=== PATIENT | female | born 2000 | race American Indian/Alaskan Native ===

== ENCOUNTER 2018-11-25 14:39 | Emergency (ER) | payer MEDICAID ==
--- NOTE | 2018-11-25 15:02 | Event Note ---
ED Screening Note ED Screening Note: pt presents with pelvic pain x 1 week +vaginal discharge, white, foul odor no vaginal itching +dysuria LNMP: two weeks ago no [employer], just moved here This initial assessment/diagnostic orders/clinical plan/treatment(s) is/are subject to change based on patients health status, clinical progression and re- assessment by fellow clinical providers in the ED. Further treatment and workup at subsequent clinical providers discretion. Patient/guardian urged not to elope from the ED as their condition may be serious if not clinically assessed and managed. Initial orders include: UA, urine preg
[2018-11-25 16:03] LABS: HCG Qualitative,Urine Negative (Negative)
[2018-11-25 16:08] LABS: Bacteria,Urine 1+ /HPF (Negative); Bilirubin,Urine NEG (Negative); Blood,Urine SM (Negative); Color,Urine Yellow (Yellow); Mucus,Urine 2+ /HPF; Protein,Urine <15 mg/dL mg/dL (Negative); Urobilinogen,Urine < 2.0 mg/dL (<2.0)
[2018-11-25] MEDS ORDERED: IBUPROFEN PO ONE (16:52)
--- NOTE | 2018-11-25 17:24 | Emergency Department Report ---
ED Female HPI - General Chief complaint: Urogenital-Female Stated complaint: CHEST PAIN/LOWER BACK PAIN/VAG DISCHARGE Time Seen by Provider: 11/25/18 15:00 Source: patient Mode of arrival: Ambulatory Limitations: No Limitations - History of Present Illness Initial comments: 18-year-old [place] female presents to the emergency room reporting she is h aving vaginal discharge with odor, lower back pain and abdominal pain. MD Complaint: vaginal discharge, pelvic pain - Related Data Allergies Allergy/AdvReac Type Severity Reaction Status Date / Time No Known Allergies Allergy Unverified 11/25/18 15:02 ED Review of Systems ROS: Stated complaint: CHEST PAIN/LOWER BACK PAIN/VAG DISCHARGE Other details as noted in HPI ED Past Medical Hx - Past Medical History Previous Medical History?: No - Surgical History Past Surgical History?: Yes Additional Surgical History: - Social History Smoking Status: Never Smoker Substance Use Type: None ED Physical Exam - General Limitations: No Limitations ED Course Vital Signs 11/25/18 14:59 Temperature 98.5 F Pulse Rate 100 H Respiratory 18 Rate Blood Pressure 140/81 O2 Sat by Pulse 97 Oximetry ED Medical Decision Making - Lab Data Laboratory Tests 11/25/18 15:40 Urine Color Yellow Urine Turbidity Clear Urine pH 5.0 Ur Specific Bryant 1.028 Urine Protein <15 mg/dl Urine Glucose (UA) Neg Urine Ketones Neg Urine Blood Sm Urine Nitrite Neg Ur Reducing Substances Not Reportable Urine Bilirubin Neg Urine Ictotest Not Reportable Urine Urobilinogen < 2.0 Ur Leukocyte Esterase Neg Urine WBC (Auto) 1.0 Urine RBC (Auto) 3.0 U Epithel Cells (Auto) 2.0 Urine Bacteria (Auto) 1+ Urine Mucus 2+ Urine HCG, Qual Negative - Medical Decision Making 18-year-old female comes in complaining of vaginal discharge with lower back pain and abdominal pain. Patient reports that she was treated about a month ago for gonorrhea and chlamydia. Wet prep comes back with many PMN cells. Discussed the patient this could be results from gonorrhea versus the medial. Gave patient the option to either be treated presumptively to bring her picture ID back to medical records in 3-5 days to obtain her results. Patient refers to get treated during her ER visit. Patient be referred to a primary care provider's or [employer] provider for follow-up. Critical care attestation.: If time is entered above; I have spent that time in minutes in the direct care of this critically ill patient, excluding procedure time. ED Disposition Clinical Impression: Vaginitis, Concern about STD in female without diagnosis Disposition: DC-01 TO HOME OR SELFCARE Is pt being admited?: No Does the pt Need Aspirin: No Condition: Stable Instructions: Safe Sex (ED), Sexually Transmitted Diseases (ED) Additional Instructions: Please follow up with a primary care provider or [employer] INS[employer]OR provider I have listed several below for your convenience. I also recommended to be tested for HIV, sy philis, herpes, hepatitis. All this can be done at [facility]. Referrals: YOSHI DUNCAN MD [Primary Care Provider] - 3-5 Days [facility] [Outside] - 3-5 Days [facility] [Outside] - 3-5 Days [facility] [Outside] - 3-5 Days [facility] [Outside] - 3-5 Days
[2018-11-25] MEDS ORDERED: ZITHROMAX PO ONE (17:27)
[2018-11-25] MEDS ORDERED: XYLOCAINE 1% MPF 5 mL INFILTRATI ONE (17:27)
[2018-11-25] MEDS ORDERED: ROCEPHIN IM ONE (17:27)
[2018-11-25 18:14] VITALS: BP 136/82
== END 2018-11-25 18:12 | disposition home or self-care (01) ==
LOC: ED 14:39
DX: N76.0 Acute vaginitis (principal); B96.89 Other specified bacterial agents as the cause of diseases classified elsewhere; Z20.2 Contact with and (suspected) exposure to infections with a predominantly sexual mode of transmission
CPT/HCPCS: 81001; 81025; 87210; 87591; 96372; 99283; J0696

== ENCOUNTER 2019-06-12 22:54 | Emergency (ER) | payer SELFPAY ==
[2019-06-12 23:06] VITALS: BP 131/84
== END 2019-06-13 01:00 | disposition left against medical advice (07) ==
LOC: ED 22:54
DX: R10.9 Unspecified abdominal pain (principal); Z53.21 Procedure and treatment not carried out due to patient leaving prior to being seen by health care provider